=== PATIENT | male | born 1985 | race Caucasian/White ===

== ENCOUNTER 2019-11-10 21:27 | Emergency (ER) | payer OTHER ==
--- NOTE | 2019-11-10 22:24 | ER ---
Nurse's Notes [facility] Name: Shaun Hanson Age: 34 yrs Sex: Male : 1985 Arrival Date: 11/10/2019 Time: 21:36 Bed 5 Private MD: Diagnosis: Encounter for screening, unspecified Presentation: 11/09 21:46 Chief complaint: Patient states: patient is known paranoid schizophrenic and has not rv been on medication for a long time because of limited resources. denies hurting self of the others. complaining of auditory hallucinations. Coronavirus screen: Proceed with normal triage. Ebola Screen: No symptoms or risks identified at this time. Initial Sepsis Screen: Does the patient meet any 2 criteria? No. Patient's initial sepsis screen is negative. Does the patient have a suspected source of infection? No. Patient's initial sepsis screen is negative. Risk Assessment: Do you want to hurt yourself or someone else? Patient reports no desire to harm self or others. Onset of symptoms was November 10, 2019 at 21:00. 21:46 Method Of Arrival: EMS: [facility] rv 21:46 Acuity: DIANE 3 rv Triage Assessment: 21:49 General: Appears uncomfortable, Behavior is anxious. Pain: Denies pain. EENT: No rv deficits noted. Neuro: Level of Consciousness is awake, alert, obeys commands, Oriented to person, place, time, situation. Cardiovascular: Patient's skin is warm and dry. Rhythm is sinus tachycardia. Respiratory: Airway is patent. GI: No signs and/or symptoms were reported involving the gastrointestinal system. : No signs and/or symptoms were reported regarding the genitourinary system. Historical: - Allergies: 21:49 No Known Allergies; rv - Home Meds: 21:49 Ativan Oral [Active]; Risperdal Oral [Active]; Zyprexa Oral [Active]; rv - PMHx: 21:49 Schizophrenia; rv - PSHx: 21:49 Tonsillectomy; rv - Immunization history:: Adult Immunizations not up to date. - Social history:: Smoking status: Patient denies any tobacco usage or history of. Screenin:50 Abuse screen: Denies threats or abuse. Denies injuries from another. Nutritional rv screening: No deficits noted. Tuberculosis screening: No symptoms or risk factors identified. Fall Risk None identified. Vital Signs: 21:46 BP 122 / 73; Pulse 110; Resp 18; Temp 98.3; Pulse Ox 96% ; Weight 74.84 kg; Height 5 rv ft. 6 in. (167.64 cm); Pain 0/10; 21:46 Body Mass Index 26.63 (74.84 kg, 167.64 cm) rv ED Course: 21:36 Patient arrived in ED. rv 21:43 Usha Najera FNP-C is [facility]. snw 21:43 Byron Vera MD is Attending Physician. snw 21:46 Sedrick Austin, RN is Primary Nurse. rv 21:48 Triage completed. rv 21:50 Arm band placed on Patient placed in the treatment room, on a stretcher, Patient rv notified of wait time. 21:50 Patient has correct armband on for positive identification. Pulse ox on. NIBP on. rv 22:24 Silas Novak MD is Referral Physician. snw 22:30 Inserted saline lock: 20 gauge in right antecubital area, using aseptic technique. rv 22:57 IV discontinued, intact, bleeding controlled, No redness/swelling at site. Pressure rv dressing applied. 22:57 No provider procedures requiring assistance completed. rv Administered Medications: No medications were administered Outcome: 22:24 Discharge ordered by . snw 22:57 Discharged to home ambulatory. rv 22:57 Condition: stable 22:57 Discharge instructions given to patient, Instructed on discharge instructions, follow up and referral plans. Demonstrated understanding of instructions, follow-up care. 22:57 Patient left the ED. rv Signatures: Usha Najera FNP-C EMPLOYMENT LAW SPECIALIST-[employer] Sedrick Austin, RN RN rv
--- NOTE | 2019-11-10 22:24 | EDPHYS ---
Physician Documentation [facility] Name: Shaun Hanson Age: 34 yrs Sex: Male : 1985 Arrival Date: 11/10/2019 Time: 21:36 Bed 5 Private MD: ED Physician Byron Vera HPI: 11/09 22:15 This 34 yrs old Male presents to ER via EMS with complaints of no complaints snw at this time. 22:15 The patient presents to the emergency department with pt with hx of paranoid snw schizophrenia, no complaints, no SI, no HI, no insomnia. . Onset: The symptoms/episode began/occurred 8 year(s) ago, and became persistent. Past psychiatric history: Prior diagnosis: schizophrenia, Psychiatric medications include: pt states he has not taken any in a long time. Associated signs and symptoms: The patient has no apparent associated signs or symptoms. Severity of symptoms: At their worst the symptoms were moderate. The patient has experienced similar episodes in the past, chronically. The patient has not recently seen a physician. Pt is without complaints, will give po and discharge from ED. 22:22 Pt states he used to live on [address]. EMS brought pt to ED at the request of the [facility] police who responded to a call from the occupants of the [address] home. Pt is known to them but not welcome.. Historical: - Allergies: 21:49 No Known Allergies; rv - Home Meds: 21:49 Ativan Oral [Active]; Risperdal Oral [Active]; Zyprexa Oral [Active]; rv - PMHx: 21:49 Schizophrenia; rv - PSHx: 21:49 Tonsillectomy; rv - Immunization history:: Adult Immunizations not up to date. - Social history:: Smoking status: Patient denies any tobacco usage or history of. ROS: 22:19 Constitutional: Negative for fever, chills, and weight loss, Eyes: Negative for injury, snw pain, redness, and discharge, ENT: Negative for injury, pain, and discharge, Neck: Negative for injury, pain, and swelling, Cardiovascular: Negative for chest pain, palpitations, and edema, Respiratory: Negative for shortness of breath, cough, wheezing, and pleuritic chest pain, Abdomen/GI: Negative for abdominal pain, nausea, vomiting, diarrhea, and constipation, Back: Negative for injury and pain, : Negative for injury, bleeding, discharge, and swelling, MS/Extremity: Negative for injury and deformity, Skin: Negative for injury, rash, and discoloration, Neuro: Negative for headache, weakness, numbness, tingling, and seizure. 22:19 Psych: Positive for hx of schizophrenia. Exam: 22:20 Constitutional: This is a well developed, well nourished patient who is awake, alert, snw and in no acute distress. Head/Face: Normocephalic, atraumatic. Eyes: Pupils equal round and reactive to light, extra-ocular motions intact. Lids and lashes normal. Conjunctiva and sclera are non-icteric and not injected. Cornea within normal limits. Periorbital areas with no swelling, redness, or edema. ENT: Nares patent. No nasal discharge, no septal abnormalities noted. Tympanic membranes are normal and external auditory canals are clear. Oropharynx with no redness, swelling, or masses, exudates, or evidence of obstruction, uvula midline. Mucous membranes moist. Neck: Trachea midline, no thyromegaly or masses palpated, and no cervical lymphadenopathy. Supple, full range of motion without nuchal rigidity, or vertebral point tenderness. No Meningismus. Chest/axilla: Normal chest wall appearance and motion. Nontender with no deformity. No lesions are appreciated. 22:20 Respiratory: Lungs have equal breath sounds bilaterally, clear to auscultation and percussion. No rales, rhonchi or wheezes noted. No increased work of breathing, no retractions or nasal flaring. Abdomen/GI: Soft, non-tender, with normal bowel sounds. No distension or tympany. No guarding or rebound. No evidence of tenderness throughout. Back: No spinal tenderness. No costovertebral tenderness. Full range of motion. Skin: Warm, dry with normal turgor. Normal color with no rashes, no lesions, and no evidence of cellulitis. MS/ Extremity: Pulses equal, no cyanosis. Neurovascular intact. Full, normal range of motion. Neuro: Awake and alert, GCS 15, oriented to person, place, time, and situation. Cranial nerves II-XII grossly intact. Motor strength 5/5 in all extremities. Sensory grossly intact. Cerebellar exam normal. Normal gait. 22:20 Cardiovascular: Rate: tachycardic, Rhythm: regular, Pulses: no pulse deficits are appreciated. 22:20 Psych: Behavior/mood is cooperative, Affect is flat, Oriented to person, place, time, Patient has no thoughts/intents to harm self or others. Judgement / Insight is normal. Delusions/hallucinations pt states he hears noises. Denies aggressive or malevolent voices. + intrusive voices. Vital Signs: 21:46 BP 122 / 73; Pulse 110; Resp 18; Temp 98.3; Pulse Ox 96% ; Weight 74.84 kg; Height 5 rv ft. 6 in. (167.64 cm); Pain 0/10; 21:46 Body Mass Index 26.63 (74.84 kg, 167.64 cm) rv MDM: 21:45 Patient medically screened. snw 22:25 Data reviewed: vital signs, nurses notes. Data interpreted: Pulse oximetry: on room air snw is 96 %. Interpretation: acceptable. Counseling: I had a detailed discussion with the patient and/or guardian regarding: the historical points, exam findings, and any diagnostic results supporting the discharge/admit diagnosis, the need for outpatient follow up, for definitive care, to return to the emergency department if symptoms worsen or persist or if there are any questions or concerns that arise at home. Administered Medications: No medications were administered Disposition: 11/10 03:52 Co-signature as Attending Physician, Byron Vera MD I agree with the assessment and kdr plan of care. Disposition: 11/10/19 22:24 Discharged to Home. Impression: Encounter for screening, unspecified. - Condition is Stable. - Medication Reconciliation Form, Thank You Letter, Antibiotic Education, Prescription Opioid Use form. - Follow up: Silas Novak MD; When: 2 - 3 days; Reason: Recheck today's complaints, Continuance of care. Signatures: Dispatcher [employer] Byron Edwards MD MD kdr Therrien, Shelly, AGRICULTURAL AND FORESTRY SUPERVISOR-C AGRICULTURAL AND FORESTRY SUPERVISOR-Sedrick Morataya RN RN rv Corrections: (The following items were deleted from the chart) 11/09 22:06 21:49 ACETAMINOPHEN+C.LAB.BRZ ordered. EDMS EDMS 22: 21:49 BASIC METABOLIC PANEL+C.LAB.BRZ ordered. EDMS EDMS 22: 21:49 CBC+H.LAB.BRZ ordered. EDMS EDMS 22: 21:49 ETHANOL+C.LAB.BRZ ordered. EDMS EDMS 22: 21:49 HEPATIC FUNCTION+C.LAB.BRZ ordered. EDMS EDMS 22: 21:49 PROTIME (+INR)+COAG.LAB.BRZ ordered. EDMS EDMS 22:06 21:49 PTT, ACTIVATED+COAG.LAB.BRZ ordered. EDMS EDMS 22: 21:49 SALICYLATE+C.LAB.BRZ ordered. EDMS EDMS 22:06 21:49 URINE DRUG SCREEN+CHEM UR.LAB.BRZ ordered. EDMS EDMS 22:57 22:24 11/10/2019 22:24 Discharged to Home. Impression: Encounter for screening, rv unspecified. Condition is Stable. Forms are Medication Reconciliation Form, Thank You Letter, Antibiotic Education, Prescription Opioid Use. Follow up: Silas Novak; When: 2 - 3 days; Reason: Recheck today's complaints, Continuance of care. snw
[2019-11-10 23:54] VITALS: BP 122/73; TEMP 98.3; O2SAT 96
== END 2019-11-10 22:57 | disposition home or self-care (01) ==
LOC: ER 21:27
DX: Z00.00 Encounter for general adult medical examination without abnormal findings (principal); F20.9 Schizophrenia, unspecified
CPT/HCPCS: 99284